=== PATIENT | female | born 1985 | race Caucasian/White ===

== ENCOUNTER 2017-11-16 22:17 | Emergency (ER) | payer OTHER, MEDICAID ==
[2017-11-17 00:06] LABS: URINE BLOOD (Dip) POC Trace-intact (NEGATIVE); URINE GLUCOSE (Dip) POC Negative (NEGATIVE); URINE KETONES (Dip) POC Negative (NEGATIVE); URINE LEUKOCYTE EST (Dip) POC Negative (NEGATIVE); URINE NITRITE (Dip) POC Negative (NEGATIVE); URINE TOTAL PROTEIN POC Negative (NEGATIVE)
[2017-11-17] MEDS: ACETAMINOPHEN 500 MG TAB PO (00:12)
[2017-11-17] MEDS: SOD CHLORIDE 0.9% 1,000 ML IV (00:16)
[2017-11-17] MEDS: ONDANSETRON 4 MG INJ IV (00:17)
== END 2017-11-17 00:15 | disposition left against medical advice (07) ==
LOC: FTE 22:17
DX: R30.0 Dysuria (principal); F17.210 Nicotine dependence, cigarettes, uncomplicated
CPT/HCPCS: 81003; 81025; 99283